=== PATIENT | male | born 1985 | race Caucasian/White ===

== ENCOUNTER 2017-02-20 15:33 | Emergency (ER) | payer BC ==
[~2017-02-20] VITALS: Ht 180.3 cm; Wt 109.1 kg
[~2017-02-20 15:33] MED LIST: ACCUPRIL20TAB; CALCIUM CHANNEL BLOC; NORVASC 5MG5 MG/TAB
[2017-02-20 16:07] VITALS: BP 140/85; PULSE 82; TEMP 97.9
== END 2017-02-20 16:26 | disposition home or self-care (01) ==
LOC: COL.ER 15:33
DX: Z20.3 Contact with and (suspected) exposure to rabies (principal)